=== PATIENT | male | born 1975 | race Caucasian/White ===

== ENCOUNTER 2017-08-15 14:05 | Observation (INO) | payer SELFPAY ==
[~2017-08-15] VITALS: Ht 175.3 cm; Wt 71.3 kg
[2017-08-15] MEDS ORDERED: IOHEXOL 350 MG/ML 10 ML VIAL (for RAD DIAG) IVCONTRAST ONE (14:06)
[2017-08-15 14:07] VITALS: BP 162/99; PULSE 99; RESP 18; TEMP 99.3; O2SAT 98
[2017-08-15] MEDS ORDERED: SODIUM CHLOR 0.9% 1000 ML INJ 1,000 ML IV SCH (14:47)
[2017-08-15] MEDS ORDERED: SODIUM CHLORIDE 0.9% FLUSH 10 ML FLUSH IVF PRN (15:00)
[2017-08-15] MEDS ORDERED: MORPHINE SULFATE 4 MG/ML INJ IV PUSH ONE (15:00)
[2017-08-15] MEDS ORDERED: ONDANSETRON HCL 4 MG/2 ML VIAL IV PUSH ONE (15:00)
[2017-08-15 15:10] LABS: AUTOMATED NEUTROPHIL # 7.2 TH/MM3 (1.8-7.7); BASOPHIL % 0.5 % (0.0-2.0); EOSINOPHIL # 0.1 TH/MM3 (0-0.4); EOSINOPHIL % 1.5 % (0.0-4.0); HEMATOCRIT 43.5 % (39.0-51.0); HEMO FLAGS DIFF FINAL; LYMPH % 17.7 % (9.0-44.0); LYMPHOCYTE # 1.7 TH/MM3 (1.0-4.8); MEAN CELL VOLUME 91.7 FL (80.0-100.0); MEAN CORPUSCULAR HGB CONC 33.8 % (32.0-36.0); MONO % 6.9 % (0.0-8.0); NEUT % 73.4 % (16.0-70.0); PLATELET COUNT 231 TH/MM3 (150-450); RED BLOOD COUNT 4.75 MIL/MM3 (4.50-5.90); RED CELL DISTRIBUTION WIDTH 13.8 % (11.6-17.2); WHITE BLOOD COUNT 9.8 TH/MM3 (4.0-11.0)
[2017-08-15 15:27] LABS: APTT (PATIENT) 28.5 SEC (24.3-30.1); PROTHROMBIN TIME - PATIENT 10.3 SEC (9.8-11.6)
[2017-08-15 15:31] LABS: POTASSIUM 4.2 MEQ/L (3.5-5.1)
[2017-08-15 15:53] LABS: CKMB 0.5 NG/ML (0.5-3.6)
--- NOTE | 2017-08-15 16:31 | PD ---
HPI Chief Complaint: Fall Time Seen by Provider: 14:47 Travel History International Travel<30 days: No Contact w/Intl Traveler<30days: No Traveled to known affect area: No History of Present Illness HPI 41-year-old male came to the emergency room brought by his neighbor for significant backache. Patient says that 2 days ago he was trying to put [place] lights when he fell from a second-story window. He landed on concrete floor. He did not come in and try to take care of it at home with over -the-counter pain medication and Epsom salt baths. Patient does not have healthcare insurance. However his backache is progressively worsening to the point where he is having trouble walking. He has started to use his fiance's cane. Patient denies any shortness of breath. Vital signs were otherwise stable. He claims to be otherwise healthy. No bowel or bladder issues. [facility] Past Medical History Narrative Medical List of his past medical, surgical, social and family history is reviewed from the nursing note. Medical History: Denies Significant Hx Tetanus Vaccination: > 5 Years Influenza Vaccination: No ?: Not Past Surgical History Tonsillectomy: Yes (ADDENOIDECTOMY) Social History Alcohol Use: Yes (OCCAS) Tobacco Use: Yes (1 PPD) Substance Use: No Allergies-Medications (Allergen,Severity, Reaction): Coded Allergies: No Known Allergies (Verified Allergy, Unknown, 08/15/17) Comments No known drug allergies. Reported Meds & Prescriptions Reported Meds & Active Scripts Active Narrative Medication List of his home medications reviewed from the nursing note. Review of Systems Except as stated in HPI: all other systems reviewed are Neg Musculoskeletal: Positive: Pain Physical Exam Narrative GENERAL: Awake, alert, moderate to significant distress SKIN: Focused skin assessment warm/dry. Diffuse erythematous maculopapular rash on his back that's blanching HEAD: Atraumatic. Normocephalic. EYES: Pupils equal and round. No scleral icterus. No injection or drainage. ENT: No nasal bleeding or discharge. Mucous membranes pink and moist. NECK: Trachea midline. No JVD. CARDIOVASCULAR: Regular rate and rhythm. No murmur appreciated. RESPIRATORY: No accessory muscle use. Clear to auscultation. Breath sounds equal bilaterally. GASTROINTESTINAL: Abdomen soft, non-tender, nondistended. Hepatic and splenic margins not palpable. MUSCULOSKELETAL: No obvious deformities. No clubbing. No cyanosis. No edema. Point tenderness at the entire thoracic and lumbar spine but no step-off. No cervical spine point tenderness. Significant paraspinal muscle spasm NEUROLOGICAL: Awake and alert. No obvious cranial nerve deficits. Motor grossly within normal limits. Normal speech. PSYCHIATRIC: Appropriate mood and affect; insight and judgment normal. Data Data Last Documented VS Orders Orders Basic Metabolic Panel (Bmp) (08/15/17 14:47) Complete Blood Count With Diff (08/15/17 14:47) Prothrombin Time / Inr (Pt) (08/15/17 14:47) Act Partial Throm Time (Ptt) (08/15/17 14:47) Type And Screen (08/15/17 14:47) Ct Abd/Pel W Iv Contrast(Rout) (08/15/17 14:47) Ct Thorax/ Chest W Iv Contrast (08/15/17 14:47) Iv Access Insert/Monitor (08/15/17 14:47) Ecg Monitoring (08/15/17 14:47) Oximetry (08/15/17 14:47) Oxygen Administration (08/15/17 14:47) Morphine Inj (Morphine Inj) (08/15/17 15:00) Sodium Chlor 0.9% 1000 Ml Inj (Ns 1000 M (08/15/17 14:47) Sodium Chloride 0.9% Flush (Ns Flush) (08/15/17 15:00) Ondansetron Inj (Zofran Inj) (08/15/17 15:00) Creatine Kinase (Cpk) (08/15/17 14:47) CKMB (08/15/17 14:55) CKMB% (08/15/17 14:55) Iohexol 350 Inj (Omnipaque 350 Inj) (08/15/17 14:06) Nicotine 21 Mg Patch.24 Hr (Habitrol 21 (08/15/17 17:45) Ketorolac Inj (Toradol Inj) (08/15/17 18:15) Orphenadrine Inj (Norflex Inj) (08/15/17 18:15) Ketorolac Inj (Toradol Inj) (08/15/17 18:15) Methocarbamol (Robaxin) (08/15/17 22:00) Acetamin-Hydrocod 325-5 Mg (Ironside 5-325 (08/15/17 18:15) Acetamin-Hydrocod 325-10 Mg (Ironside 10-32 (08/15/17 18:15) Morphine Inj (Morphine Inj) (08/15/17 18:15) Activity Oob With Assistance (08/15/17 18:06) Consult Pt Eval & Tx Oob (08/15/17 18:06) Admit Order (Ed Use Only) (08/15/17 18:23) Labs Laboratory Tests Test 08/15/17 14:55 White Blood Count 9.8 TH/MM3 Red Blood Count 4.75 MIL/MM3 Hemoglobin 14.7 GM/DL Hematocrit 43.5 % Mean Corpuscular Volume 91.7 FL Mean Corpuscular Hemoglobin 31.0 PG Mean Corpuscular Hemoglobin Concent 33.8 % Red Cell Distribution Width 13.8 % Platelet Count 231 TH/MM3 Mean Platelet Volume 8.2 FL Neutrophils (%) (Auto) 73.4 % Lymphocytes (%) (Auto) 17.7 % Monocytes (%) (Auto) 6.9 % Eosinophils (%) (Auto) 1.5 % Basophils (%) (Auto) 0.5 % Neutrophils # (Auto) 7.2 TH/MM3 Lymphocytes # (Auto) 1.7 TH/MM3 Monocytes # (Auto) 0.7 TH/MM3 Eosinophils # (Auto) 0.1 TH/MM3 Basophils # (Auto) 0.0 TH/MM3 CBC Comment DIFF FINAL Differential Comment Prothrombin Time 10.3 SEC Prothromb Time International Ratio 1.0 RATIO Activated Partial Thromboplast Time 28.5 SEC Blood Urea Nitrogen 15 MG/DL Creatinine 0.97 MG/DL Random Glucose 101 MG/DL Calcium Level 9.1 MG/DL Sodium Level 138 MEQ/L Potassium Level 4.2 MEQ/L Chloride Level 105 MEQ/L Carbon Dioxide Level 27.0 MEQ/L Anion Gap 6 MEQ/L Estimat Glomerular Filtration Rate 84 ML/MIN Total Creatine Kinase 310 U/L Creatine Kinase MB 0.5 NG/ML Creatine Kinase MB % 0.2 % MDM Medical Decision Making Medical Screen Exam Complete: Yes Emergency Medical Condition: Yes Medical Record Reviewed: Yes Differential Diagnosis Lumbar fracture, thoracic fracture, rib fracture Narrative Course 4:30 PM blood test results of back and within acceptable limits. Awaiting for the CT scan of his thorax, abdomen and pelvis. Patient was medicated for pain. [address] scan shows L2 superior endplate fracture. I discussed the case with Dr. Carrillo recommends Toradol and muscle relaxant and he will consult on the patient. Awaiting for the hospitalist to call back. Procedures Procedure Narrative Emergency department E-FAST was performed with patient consent. The curvilinear probe was used in the right upper quadrant/Morison's pouch, suprapubic, left upper quadrant/spleenorenal space, epigastric, parasternal long axis and anterior bilateral chest wall. There was no evidence of peritoneal free fluid, pericardial effusion, or pneumothorax. EKG Prior to Arrival: No Physician Communication Physician Communication Dr. Carrillo Diagnosis Primary Impression: L2 vertebral fracture Qualified Codes: S32.028A - Other fracture of second lumbar vertebra, initial encounter for closed fracture Additional Impression: Fall Qualified Codes: W19.XXXA - Unspecified fall, initial encounter Admitting Information Admitting Physician Requests: Admit Scripts Ibuprofen (Ibuprofen) 400 Mg Tab 400 MG PO Q8H for Inflammation for 10 Days, #30 TAB 0 Refills Prov: Gonzalez Madrid MD 08/17/17 Hydrocodone/Acetaminophen (Hydrocodone-Acetamin 5-325 mg) 5 Mg-325 Mg Tablet 1-2 TAB PO Q4H Y for PAIN SCALE 4 TO 10 for 10 Days, #60 TAB 0 Refills Prov: Gonzalez Madrid MD 08/17/17 Methocarbamol (Methocarbamol) 500 Mg Tab 500 MG PO Q8HR Y for SPASM for 7 Days, #20 TAB Prov: Gonzalez Madrid MD 08/17/17 Misc. Devices (Roller Walker) 1 Mis Mis EA .ROUTE NOW, #1 Prov: Leeann Pelayo MD 08/16/17 Canelo Chaudhary MD Aug 15, 2017 16:31
--- NOTE | 2017-08-15 16:58 | RADRPT ---
EXAM DATE/TIME: 08/15/2017 16:19 This report includes an Addendum and supersedes previous reports for this exam. [facility] COMPARISON: No previous studies available for comparison. INDICATIONS : Fall from second floor window. IV CONTRAST: 71 cc Omnipaque 350 (iohexol) IV ; Cumulative dose for multiple exams. ORAL CONTRAST: No oral contrast ingested. RADIATION DOSE: 13.65 CTDIvol (mGy) ; Combined studies - Thorax/Abdomen/Pelvis MEDICAL HISTORY : None SURGICAL HISTORY : None. ENCOUNTER: Initial ACUITY: 1 day PAIN SCALE: 6/10 LOCATION: Bilateral lower back. TECHNIQUE: Volumetric scanning of the abdomen and pelvis was performed. Using automated exposure control and ad justment of the mA and/or kV according to patient size, radiation dose was kept as low as reasonably achievable to obtain optimal diagnostic quality images. DICOM format image data is available electro nically for review and comparison. FINDINGS: LOWER LUNGS: Dependent atelectatic changes in both hemithoraces. LIVER: 1.9 cm enhancing lesion along the superior border of the left hepatic lobe with a partially enhancing 9 mm nodule posteriorly in the right hepatic lobe are characteristic of hemangiomas. There is no di lation of the biliary tree. No calcified gallstones. SPLEEN: Normal size without lesion. PANCREAS: Within normal limits. KIDNEYS: Normal in size and shape. There is no mass, stone or hydronephrosis. ADRENAL GLANDS: Within normal limits. VASCULAR: There is no aortic aneurysm. BOWEL/MESENTERY: The stomach, small bowel, and colon demonstrate no acute abnormality. There is no free intraperitone al air or fluid. ABDOMINAL WALL: Subcutaneous stranding laterally over the right buttocks characteristic of soft tissue contusion. RETROPERITONEUM: There is no lymphadenopathy. BLADDER: No wall thickening or mass. REPRODUCTIVE: Within normal limits. INGUINAL: There is no lymphadenopathy or hernia. MUSCULOSKELETAL: Mild levoscoliosis of the thoracolumbar spine. CONCLUSION: 1. Contusion over the lateral aspect of the right buttocks. No associated fracture. 2. Probable hemangiomas along the superior margin of the left hepatic lobe and posteriorly in the rig ht hepatic lobe. 3. No acute fracture or visceral trauma. 4. Mild levoscoliosis of the thoracolumbar spine. Bibasilar dependent atelectatic changes. Luigi Pavon MD on August 15, 2017 at 16:50 Board Certified Radiologist. This report was verified electronically. ADDENDUM: I was asked to review the above by Dr. Chaudhary. There is a fracture through the superior endplate of L2, best seen on the coronal reconstructions and sagittal computer hardware developer of the same series. No retropulsed fr agment. Osseous structures are otherwise intact. Luigi Pavon MD on August 15, 2017 at 17:29 Board Certified Radiologist. This report was verified electronically.
--- NOTE | 2017-08-15 17:05 | RADRPT ---
EXAM DATE/TIME: 08/15/2017 16:19 [facility] COMPARISON: No previous studies available for comparison. INDICATIONS : Fall from second floor window. IV CONTRAST: 71 cc Omnipaque 350 (iohexol) IV ; Cumulative dose for multiple exams. RADIATION DOSE: 13.65 CTDIvol (mGy) ; Combined studies - Thorax/Abdomen/Pelvis MEDICAL HISTORY : None SURGICAL HISTORY : None. ENCOUNTER: Initial ACUITY: 1 day PAIN SCALE: 6/10 LOCATION: mid-back TECHNIQUE: Volumetric scanning of the chest was performed. Using automated exposure control and adjustment of t he mA and/or kV according to patient size, radiation dose was kept as low as reasonably achievable to obtain optimal diagnostic quality images. DICOM format image data is available electronically for review and comparison. Follow-up recommendations for detected pulmonary nodules are based at a minimum on nodule size and pa tient risk factors according to Fleischner Society Guidelines. FINDINGS: LUNGS: 2 nodular densities are identified. There is a noncalcified nodule in the right middle lobe measuring 8 mm. A pleural-based nodule is identified in the posterior left costophrenic sulcus measuring 9 mm. There is no mass or pneumothorax. Marked compressive atelectasis is seen posteriorly in the lung s. There is also consolidating airspace disease. PLEURA: There is no pleural thickening or pleural effusion. MEDIASTINUM: The heart and great vessels demonstrate no acute abnormality. There is no mediastinal or hilar lymph adenopathy. AXILLAE: Within normal limits. No lymphadenopathy. SKELETAL: Advanced arthropathy is noted at the left shoulder joint. The bony structures are otherwise intact. T here is no acute fracture. MISCELLANEOUS: The visualized upper abdominal organs demonstrate no acute abnormality. CONCLUSION: 1. Small noncalcified nodules. Short-term followup may be indicated. 2. No evidence of consolidating airspace disease, pneumothorax or acute fracture. 3. Advanced arthropathy of the left shoulder. Jair Pérez MD on August 15, 2017 at 16:57 Board Certified Radiologist. This report was verified electronically.
[2017-08-15 17:24] VITALS: BP 125/82; PULSE 84; RESP 18; O2SAT 99
[2017-08-15] MEDS ORDERED: NICOTINE 21 MG/24 HR PATCH T-DERMAL ONE (17:45)
[2017-08-15] MEDS ORDERED: MORPHINE SULFATE 4 MG/ML INJ IV PUSH PRN (18:15)
[2017-08-15] MEDS ORDERED: ORPHENADRINE INJ 60 MG/2 ML AMP IM ONE (18:15)
[2017-08-15] MEDS ORDERED: KETOROLAC TROMETHAMINE 30 MG/ML (IVP) VIAL IV PUSH ONE (18:15)
[2017-08-15] MEDS ORDERED: ACETAMINOPHEN/HYDROcodone 325 MG/5 MG TAB PO PRN (18:15)
[2017-08-15] MEDS: KETOROLAC TROMETHAMINE 30 MG/ML (IVP) VIAL IV PUSH SCH ×2 (18:15→23:34)
--- NOTE | 2017-08-15 18:15 | PD.CONS ---
[facility] Service Neurosurgery Consult Requested By Emergency room- Reason for Consult The patient is a 41-year-old male who came to the emergency room by private vehicle today with complaint of severe back pain. He reportedly fell one story on to concrete while putting up [place] lights 2 days ago. No loss of consciousness. The back pain has become severe to the point where he has difficulty ambulating even with a cane. No fevers chills, nausea or vomiting. No bowel or bladder dysfunction. No weakness numbness paresthesias in the extremities. No neck pain. Primary Care Physician No Primary Care Physician Review of Systems Constitutional: DENIES: Fever, Dizziness Ears, nose, mouth, throat: DENIES: Hearing loss, Vertigo Respiratory: DENIES: Cough, Shortness of breath Cardiovascular: DENIES: Chest pain, Palpitations, Syncope Gastrointestinal: DENIES: Abdominal pain, Constipation, Diarrhea, Nausea, Vomiting Genitourinary: DENIES: Urinary incontinence Musculoskeletal: COMPLAINS OF: Muscle aches, Stiffness, Back pain, DENIES: Joint pain, Neck pain Hematologic/lymphatic: COMPLAINS OF: Bruising Neurologic: COMPLAINS OF: Abnormal gait, DENIES: Headache Psychiatric: DENIES: Confusion Past Family Social History Allergies: Coded Allergies: No Known Allergies (Verified Allergy, Unknown, 08/15/17) Past Medical History No history of significant cardiac, pulmonary, gastrointestinal disease, diabetes , hypertension Past Surgical History Adenoidectomy Reported Medications Reported Meds & Active Scripts Active No Active Prescriptions or Reported Medications Social History Smokes 1 pack cigarettes per day Occasional alcohol use Physical Exam Vital Signs Vital Signs Date Time Temp Pulse Resp B/P (MAP) Pulse Ox O2 Delivery O2 Flow Rate FiO2 08/15/17 17:24 84 18 125/82 (96) 99 Room Air 08/15/17 14:31 96 18 98 Room Air 08/15/17 14:07 99.3 99 18 162/99 (120) 98 Room Air Physical Exam GENERAL: This is a well-nourished, well-developed patient, no apparent distress. SKIN: No abrasions, contusion, rash noted. Skin warm and dry. HEAD: Atraumatic. Normocephalic. No temporal or scalp tenderness. EYES: Sclerae are clear and nonicteric ENT: No facial edema or ecchymosis. No periorbital edema. No CSF otorrhea or rhinorrhea. No palpable facial fracture or deformity. NECK: Trachea midline. No cervical spine tenderness. CARDIOVASCULAR: Regular rate and rhythm without murmurs, gallops, or rubs. RESPIRATORY: Clear to auscultation. Breath sounds equal bilaterally. No wheezes , rales, or rhonchi. GASTROINTESTINAL: Abdomen soft, non-tender, nondistended. No hepato-splenomegaly , or palpable masses. No guarding. MUSCULOSKELETAL: Extremities without cyanosis, or edema. No joint tenderness, or edema noted. No calf tenderness. Dorsalis pedis pulses 2+ bilateral NEUROLOGICAL: Awake and alert Oriented X 3 Speech is clear Conversant and appropriate Follow simple commands well Answers questions appropriately Reasonable judgment and insight Recent and remote memory are intact No evidence of anxiety or depression Pupils are equal and reactive to accommodation. Extra-ocular movements, visual sanchez to confrontation, facial sensorimotor, tongue, palate, sternocleidomastoid testing, hearing to finger rub testing, and bilateral shoulder shrug are all intact. Sensation is intact to light touch in all extremities Strength normal major flexion and extension groups all extremities Amarilis's absent bilaterally No ankle clonus Plantar responses absent bilateral Fine motor movements intact upper extremities Laboratory Laboratory Tests Test 08/15/17 14:55 White Blood Count 9.8 Red Blood Count 4.75 Hemoglobin 14.7 Hematocrit 43.5 Mean Corpuscular Volume 91.7 Mean Corpuscular Hemoglobin 31.0 Mean Corpuscular Hemoglobin Concent 33.8 Red Cell Distribution Width 13.8 Platelet Count 231 Mean Platelet Volume 8.2 Neutrophils (%) (Auto) 73.4 Lymphocytes (%) (Auto) 17.7 Monocytes (%) (Auto) 6.9 Eosinophils (%) (Auto) 1.5 Basophils (%) (Auto) 0.5 Neutrophils # (Auto) 7.2 Lymphocytes # (Auto) 1.7 Monocytes # (Auto) 0.7 Eosinophils # (Auto) 0.1 Basophils # (Auto) 0.0 CBC Comment DIFF FINAL Differential Comment Prothrombin Time 10.3 Prothromb Time International Ratio 1.0 Activated Partial Thromboplast Time 28.5 Blood Urea Nitrogen 15 Creatinine 0.97 Random Glucose 101 Calcium Level 9.1 Sodium Level 138 Potassium Level 4.2 Chloride Level 105 Carbon Dioxide Level 27.0 Anion Gap 6 Estimat Glomerular Filtration Rate 84 Total Creatine Kinase 310 Creatine Kinase MB 0.5 Creatine Kinase MB % 0.2 Result Diagram: 08/15/17 1455 08/15/17 1455 Imaging 08/15/17 CT scan abdomen and pelvis and CT scan chest bone windows of the thoracic lumbar and sacral spine images have been reviewed by the undersigned. There is a small superior L2 endplate fracture without retropulsion, subluxation , or kyphosis. No posterior element involvement. Chest CT 08/15/17 1447 Signed Impressions: Service Date/Time: August 16:19 - CONCLUSION: 1. Small noncalcified nodules. Short-term followup may be indicated. 2. No evidence of consolidating airspace disease, pneumothorax or acute fracture. 3. Advanced arthropathy of the left shoulder. Jair Pérez MD Abdomen/Pelvis CT 08/15/17 1447 Signed Impressions: Service Date/Time: August 16:19 - CONCLUSION: 1. Contusion over the lateral aspect of the right buttocks. No associated fracture. 2. Probable hemangiomas along the superior margin of the left hepatic lobe and posteriorly in the right hepatic lobe. 3. No acute fracture or visceral trauma. 4. Mild levoscoliosis of the thoracolumbar spine. Bibasilar dependent atelectatic changes. Luigi Pavon MD ADDENDUM: I was asked to review the above by Dr. Chaudhary. There is a fracture through the superior endplate of L2, best seen on the coronal reconstructions and sagittal drafting detailer of the same series. No retropulsed fragment. Osseous structures are otherwise intact. Luigi Pavon MD Assessment and Plan Assessment and Plan Impression: 1. Mild superior L2 compression fracture without subluxation, retropulsion, or posterior element involvement. 2. Thoracolumbar myofascial strain Recommendations: Patient is being admitted for pain control, physical therapy. Have initiated IV Toradol, Robaxin, and narcotic pain medication. Physical therapy consult He does not require brace at this point. Plan follow-up x-ray and possible MRI imaging depending on his clinical course. Vlad Carrillo MD Aug 15, 2017 18:15
[2017-08-15] MEDS ORDERED: SODIUM CHLORIDE 0.9% FLUSH 10 ML FLUSH IV FLUSH PRN (18:30)
[2017-08-15] MEDS ORDERED: NALOXONE HCL 0.4 MG/ML AMP IV PUSH PRN (18:30)
--- NOTE | 2017-08-15 18:57 | HHI.HP ---
HPI Service [facility] Primary Care Physician No Primary Care Physician Admission Diagnosis L2 superior endplate fracture, fall Diagnoses: Travel History International Travel<30 Days: No Contact w/Intl Traveler <30 Da: No Traveled to Known Affected Are: No History of Present Illness fell 2 days ago, tues even while trying to hang [employer] lights from 2nd story onto concrete pavement reports he hit his head landed on his back or butt- with big bruise there not on blood thinners girlfriend heard him scream and came and got him up, and walked with him, and took him to take a bath with epsom salt pt does not remember anything regarding girlfriend getting him up she called the squad yesterday because his pain in lower lumbar spine, denies headaches, denies discharge from ears was able to walk at home with the girlfriend's walker no other symptoms Review of Systems Except as stated in HPI: all other systems reviewed are Neg Past Family Social History Past Medical History none but was told once RLS and was prescribed requip- that was about 20yrs ago Past Surgical History left should dislocation sx adneoidctomy Reported Medications tylenol pm every night for sleep kratom powder for left shoulder pain from arthritis Allergies: Coded Allergies: No Known Allergies (Verified Allergy, Unknown, 08/15/17) Family History mother- MS mother side, heart issues and cancers Social History smokes a pack a day drink about one or two shots of fireball, one beer, one wine- at least drink about 4 times a week [facility] , no iv drugs Physical Exam Vital Signs Vital Signs Date Time Temp Pulse Resp B/P (MAP) Pulse Ox O2 Delivery O2 Flow Rate FiO2 08/15/17 17:24 84 18 125/82 (96) 99 Room Air 08/15/17 14:31 96 18 98 Room Air 08/15/17 14:07 99.3 99 18 162/99 (120) 98 Room Air Physical Exam GENERAL: This is a well-nourished, well-developed patient, in no apparent distress. SKIN: No rashes, ecchymoses or lesions. Cool and dry. HEAD: Atraumatic. Normocephalic. No temporal or scalp tenderness. EYES: No scleral icterus. No injection or drainage. ENT: Nose without bleeding, purulent drainage or septal hematoma. . Airway patent. NECK: Trachea midline. No JVD. Supple, nontender, no meningeal signs. CARDIOVASCULAR: Regular rate and rhythm without murmurs, gallops, or rubs. RESPIRATORY: Clear to auscultation. Breath sounds equal bilaterally. No wheezes , rales, or rhonchi. GASTROINTESTINAL: Abdomen soft, non-tender, nondistended. No hepato-splenomegaly , or palpable masses. No guarding. MUSCULOSKELETAL: Extremities without clubbing, cyanosis, or edema. No calf tenderness. NEUROLOGICAL: Awake and alert. Motor and sensory grossly within normal limits. Normal speech. Pain at lumbosacral area. Even with minimal improvement. Laboratory Laboratory Tests Test 08/15/17 14:55 White Blood Count 9.8 Red Blood Count 4.75 Hemoglobin 14.7 Hematocrit 43.5 Mean Corpuscular Volume 91.7 Mean Corpuscular Hemoglobin 31.0 Mean Corpuscular Hemoglobin Concent 33.8 Red Cell Distribution Width 13.8 Platelet Count 231 Mean Platelet Volume 8.2 Neutrophils (%) (Auto) 73.4 Lymphocytes (%) (Auto) 17.7 Monocytes (%) (Auto) 6.9 Eosinophils (%) (Auto) 1.5 Basophils (%) (Auto) 0.5 Neutrophils # (Auto) 7.2 Lymphocytes # (Auto) 1.7 Monocytes # (Auto) 0.7 Eosinophils # (Auto) 0.1 Basophils # (Auto) 0.0 CBC Comment DIFF FINAL Differential Comment Prothrombin Time 10.3 Prothromb Time International Ratio 1.0 Activated Partial Thromboplast Time 28.5 Blood Urea Nitrogen 15 Creatinine 0.97 Random Glucose 101 Calcium Level 9.1 Sodium Level 138 Potassium Level 4.2 Chloride Level 105 Carbon Dioxide Level 27.0 Anion Gap 6 Estimat Glomerular Filtration Rate 84 Total Creatine Kinase 310 Creatine Kinase MB 0.5 Creatine Kinase MB % 0.2 Result Diagram: 08/15/17 1455 08/15/17 1455 Imaging Last [address] 08/15/17 1447 Signed Impressions: Service Date/Time: August 16:19 - CONCLUSION: 1. Small noncalcified nodules. Short-term followup may be indicated. 2. No evidence of consolidating airspace disease, pneumothorax or acute fracture. 3. Advanced arthropathy of the left shoulder. Jair Pérez MD Abdomen/Pelvis CT 08/15/17 1447 Signed Impressions: Service Date/Time: August 16:19 - CONCLUSION: 1. Contusion over the lateral aspect of the right buttocks. No associated fracture. 2. Probable hemangiomas along the superior margin of the left hepatic lobe and posteriorly in the right hepatic lobe. 3. No acute fracture or visceral trauma. 4. Mild levoscoliosis of the thoracolumbar spine. Bibasilar dependent atelectatic changes. Luigi Pavon MD ADDENDUM: I was asked to review the above by Dr. Chaudhary. There is a fracture through the superior endplate of L2, best seen on the coronal reconstructions and sagittal psychological anthropologist of the same series. No retropulsed fragment. Osseous structures are otherwise intact. Luigi Pavon MD Head CT 08/15/17 0000 Signed Impressions: Service Date/Time: August 19:04 - CONCLUSION: 1. No acute intracranial abnormalities. There is a focal calcification in the right frontoparietal region which appears benign. Vishal Leroy MD Caprini VTE Risk Assessment Caprini VTE Risk Assessment: Mod/High Risk (score >= 2) Caprini Risk Assessment Model Point Value = 1 Point Value = 2 Point Value = 3 Point Value = 5 Age 41-60 Minor surgery BMI > 25 kg/m2 Swollen legs Varicose veins or History of unexplained or recurrent spontaneous Oral contraceptives or hormone replacement Sepsis (< 1 month) Serious lung disease, including pneumonia (< 1 month) Abnormal pulmonary function Acute myocardial infarction Congestive heart failure (< 1 month) History of inflammatory bowel disease Medical patient at bed rest Age 61-74 Arthroscopic surgery Major open surgery (> 45 min) Laparoscopic surgery (> 45 min) Malignancy Confined to bed (> 72 hours) Immobilizing plaster cast Central venous access Age >= 75 History of VTE Family history of VTE Factor V Leiden Prothrombin [id number] Lupus anticoagulant Anticardiolipin antibodies Elevated serum homocysteine Heparin-induced thrombocytopenia Other congenital or acquired thrombophilia Stroke (< 1 month) Elective arthroplasty Hip, pelvis, or leg fracture Acute spinal cord injury (< 1 month) Prophylaxis Regimen Total Risk Factor Score Risk Level Prophylaxis Regimen 0-1 Low Early ambulation 2 Moderate Order ONE of the following: *Sequential Compression Device (SCD) *Heparin 5000 units SQ BID 3-4 Higher Order ONE of the following medications: *Heparin 5000 units SQ TID *Enoxaparin/Lovenox 40 mg SQ daily (WT < 150 kg, CrCl > 30 mL/min) *Enoxaparin/Lovenox 30 mg SQ daily (WT < 150 kg, CrCl > 10-29 mL/min) *Enoxaparin/Lovenox 30 mg SQ BID (WT < 150 kg, CrCl > 30 mL/min) AND/OR *Sequential Compression Device (SCD) 5 or more Highest Order ONE of the following medications: *Heparin 5000 units SQ TID (Preferred with Epidurals) *Enoxaparin/Lovenox 40 mg SQ daily (WT < 150 kg, CrCl > 30 mL/min) *Enoxaparin/Lovenox 30 mg SQ daily (WT < 150 kg, CrCl > 10-29 mL/min) *Enoxaparin/Lovenox 30 mg SQ BID (WT < 150 kg, CrCl > 30 mL/min) AND *Sequential Compression Device (SCD) Assessment and Plan Assessment and Plan Impression: Status post fall 2 days ago. Not able to recall the events. L2 fracture Arthritis of left shoulder Restless leg syndrome Plan: Exam patient was evaluated by neurosurgeon. For now, pain management, continue monitoring. If no improvement, further imaging studies will be planned per neurologist surgeon. DVT prophylaxis with SCD. Discussed Condition With patient, ER Jada Alejandro MD Aug 15, 2017 18:57
[2017-08-15 19:11] VITALS: RESP 18; O2SAT 99
--- NOTE | 2017-08-15 19:26 | RADRPT ---
EXAM DATE/TIME: 08/15/2017 19:04 [facility] COMPARISON: No previous studies available for comparison. INDICATIONS : Head pain due to fall from second story window. RADIATION DOSE: 30.39 CTDIvol (mGy) MEDICAL HISTORY : None SURGICAL HISTORY : Tonsillectomy. ENCOUNTER: Initial ACUITY: 1 day PAIN SCALE: 5/10 LOCATION: Bilateral cranial TECHNIQUE: Multiple contiguous axial images were obtained of the head. Using automated exposure control and adj ustment of the mA and/or kV according to patient size, radiation dose was kept as low as reasonably a chievable to obtain optimal diagnostic quality images. DICOM format image data is available electro nically for review and comparison. FINDINGS: CEREBRUM: The ventricles are normal for age. No evidence of midline shift, mass lesion, hemorrhage or acute in farction. No extra-axial fluid collections are seen. POSTERIOR FOSSA: The cerebellum and brainstem are intact. The 4th ventricle is midline. The cerebellopontine angle i s unremarkable. EXTRACRANIAL: The visualized portion of the orbits is intact. SKULL: The calvaria is intact. No evidence of skull fracture. CONCLUSION: 1. No acute intracranial abnormalities. There is a focal calcification in the right frontoparietal re gion which appears benign. Vishal Leroy MD on August 15, 2017 at 19:20 Board Certified Radiologist. This report was verified electronically.
[2017-08-15 20:00] VITALS: BP 144/99; PULSE 72; RESP 18; TEMP 95.9; O2SAT 96
[2017-08-15] MEDS ORDERED: THIAMINE HCL 100 MG TAB PO ONE (20:45)
[2017-08-15] MEDS ORDERED: LORazepam 2 MG TAB PO PRN (20:45)
[2017-08-15] MEDS ORDERED: LORazepam 1 MG TAB PO PRN (20:45)
[2017-08-15] MEDS ORDERED: FLUMAZENIL 0.5 MG/5 ML VIAL IV PUSH PRN (20:45)
[2017-08-15] MEDS: METHOCARBAMOL 500 MG TAB PO SCH (21:25)
[2017-08-15] MEDS: ACETAMINOPHEN/HYDROcodone 325 MG/10 MG TAB PO PRN (21:25)
[2017-08-15] MEDS: SODIUM CHLORIDE 0.9% FLUSH 10 ML FLUSH IV FLUSH SCH (21:26)
[2017-08-15 21:30] VITALS: PULSE 81
[2017-08-16] VITALS (9 sets, daily range): BP systolic 129–143; BP diastolic 83–96; PULSE 64–78; RESP 18; TEMP 96.6–97.8; O2SAT 96–98
[2017-08-16] MEDS: ACETAMINOPHEN/HYDROcodone 325 MG/10 MG TAB PO PRN ×6 (01:49→22:39)
[2017-08-16] MEDS: KETOROLAC TROMETHAMINE 30 MG/ML (IVP) VIAL IV PUSH SCH ×3 (05:34→18:24)
[2017-08-16] MEDS: METHOCARBAMOL 500 MG TAB PO SCH ×3 (05:34→21:50)
[2017-08-16 07:18] LABS: AUTOMATED NEUTROPHIL # 4.1 TH/MM3 (1.8-7.7); BASOPHIL % 0.7 % (0.0-2.0); EOSINOPHIL # 0.3 TH/MM3 (0-0.4); EOSINOPHIL % 4.1 % (0.0-4.0); HEMATOCRIT 38.2 % (39.0-51.0); HEMO FLAGS DIFF FINAL; LYMPH % 24.4 % (9.0-44.0); LYMPHOCYTE # 1.6 TH/MM3 (1.0-4.8); MEAN CELL VOLUME 92.3 FL (80.0-100.0); MEAN CORPUSCULAR HEMOGLOBIN 30.9 PG (27.0-34.0); MEAN CORPUSCULAR HGB CONC 33.5 % (32.0-36.0); NEUT % 61.8 % (16.0-70.0); PLATELET COUNT 196 TH/MM3 (150-450); RED BLOOD COUNT 4.14 MIL/MM3 (4.50-5.90); RED CELL DISTRIBUTION WIDTH 13.9 % (11.6-17.2); WHITE BLOOD COUNT 6.6 TH/MM3 (4.0-11.0)
[2017-08-16 07:43] LABS: POTASSIUM 4.3 MEQ/L (3.5-5.1)
[2017-08-16] MEDS: SODIUM CHLORIDE 0.9% FLUSH 10 ML FLUSH IV FLUSH SCH ×2 (09:00→21:00)
[2017-08-16] MEDS: THIAMINE HCL 100 MG TAB PO SCH (09:36)
[2017-08-16] MEDS ORDERED: NICOTINE 21 MG/24 HR PATCH T-DERMAL ONE (14:00)
[2017-08-16] MEDS ORDERED: REMOVE OLD NICODERM (NICOTINE) PATCH T-DERMAL ONE (14:00)
[2017-08-16] MEDS ORDERED: ROLLER WALKER1 MI1 (15:13)
--- NOTE | 2017-08-16 15:24 | HHI.PR ---
Subjective Remarks Pt states he feels very sore. He doesn't get pain when he stays still but w movement he does have pain. no nausea or vomiting, no lightheadedness or dizziness. Objective Vitals Vital Signs Date Time Temp Pulse Resp B/P (MAP) Pulse Ox O2 Delivery O2 Flow Rate FiO2 08/16/17 12:00 96.7 72 18 140/92 (108) 98 08/16/17 08:00 97.2 69 18 135/88 (104) 96 08/16/17 04:29 64 08/16/17 04:00 96.6 73 18 139/92 (108) 96 08/16/17 00:05 78 08/16/17 00:00 97.8 78 18 129/83 (98) 97 08/15/17 21:30 81 08/15/17 20:00 95.9 72 18 144/99 (114) 96 08/15/17 19:52 08/15/17 19:11 99 Room Air 08/15/17 19:11 18 99 Room Air 08/15/17 17:24 84 18 125/82 (96) 99 Room Air I/O 08/15/17 08/15/17 08/15/17 08/16/17 08/16/17 08/16/17 07:00 15:00 23:00 07:00 15:00 23:00 Intake Total 1480 ml 480 ml Balance 1480 ml 480 ml Intake Oral 480 ml 480 ml IV Total 1000 ml # Voids 1 1 # Bowel Movements 0 0 1 Result Diagram: 08/16/17 0659 08/16/17 0659 Imaging Last Impressions Chest CT 08/15/177 Signed Impressions: Service Date/Time: August 16:19 - CONCLUSION: 1. Small noncalcified nodules. Short-term followup may be indicated. 2. No evidence of consolidating airspace disease, pneumothorax or acute fracture. 3. Advanced arthropathy of the left shoulder. Jair Pérez MD Abdomen/Pelvis CT 08/15/177 Signed Impressions: Service Date/Time: August 16:19 - CONCLUSION: 1. Contusion over the lateral aspect of the right buttocks. No associated fracture. 2. Probable hemangiomas along the superior margin of the left hepatic lobe and posteriorly in the right hepatic lobe. 3. No acute fracture or visceral trauma. 4. Mild levoscoliosis of the thoracolumbar spine. Bibasilar dependent atelectatic changes. Luigi Pavon MD ADDENDUM: I was asked to review the above by Dr. Chaudhary. There is a fracture through the superior endplate of L2, best seen on the coronal reconstructions and sagittal stitch burnisher of the same series. No retropulsed fragment. Osseous structures are otherwise intact. Luigi Pavon MD Head CT 08/15/17 0000 Signed Impressions: Service Date/Time: August 19:04 - CONCLUSION: 1. No acute intracranial abnormalities. There is a focal calcification in the right frontoparietal region which appears benign. Vishal Leroy MD Objective Remarks GENERAL: laying in bed HEAD: Atraumatic. Normocephalic. EYES: EOMI ENT: Nose without drainage. Airway patent. NECK: Trachea midline. CARDIOVASCULAR: Regular rate and rhythm without murmurs RESPIRATORY: Clear to auscultation. Breath sounds equal bilaterally. No wheezes GASTROINTESTINAL: Abdomen soft, non-tender, nondistended. No guarding. MUSCULOSKELETAL: Extremities without edema. No calf tenderness. NEUROLOGICAL: Awake and alert. Motor and sensory grossly within normal limits. Normal speech. A/P Assessment and Plan Status post fall/ L2 fx. Not able to recall the events. Dr Roach evaluated the patient, continue pain control w toradol IV scheduled until 08/17/17, robaxin, norco prn and morphine prn breakthrough. Pt was also evaluate by PT who recommended wheeled walker and no home PT. Pt continues to be sore but pain better whenever he doesn't move. Per neurosx he doesn't need a brace. Awaiting final recs from neurosx. Arthritis of left shoulder-stable Restless leg syndrome -stable DVT proph: SCD/encourage ambulation Discharge Planning anticipate d/c in Leeann Foster MD Aug 16, 2017 15:24
[2017-08-16] MEDS ORDERED: TEMAZEPAM 15 MG CAP PO ONE (20:45)
[2017-08-16] MEDS: REMOVE OLD PATCH T-DERMAL SCH (21:00)
[2017-08-17] VITALS: BP 143/90; PULSE 76; RESP 18; TEMP 96.5; O2SAT 97
[2017-08-17] MEDS: KETOROLAC TROMETHAMINE 30 MG/ML (IVP) VIAL IV PUSH SCH ×3 (00:06→14:23)
[2017-08-17] MEDS: METHOCARBAMOL 500 MG TAB PO SCH ×2 (05:59→14:22)
[2017-08-17 07:50] VITALS: BP 140/84; PULSE 72; RESP 18; TEMP 97.2; O2SAT 98
[2017-08-17] MEDS ORDERED: NICOTINE 21 MG/24 HR PATCH T-DERMAL SCH (09:00)
[2017-08-17] MEDS: THIAMINE HCL 100 MG TAB PO SCH (10:12)
[2017-08-17] MEDS: REMOVE OLD PATCH T-DERMAL SCH (10:12)
[2017-08-17] MEDS: ACETAMINOPHEN/HYDROcodone 325 MG/10 MG TAB PO PRN ×2 (10:14→14:22)
[2017-08-17] MEDS: SODIUM CHLORIDE 0.9% FLUSH 10 ML FLUSH IV FLUSH SCH (10:15)
[2017-08-17 11:39] VITALS: BP 138/77; PULSE 84; RESP 18; TEMP 97.2; O2SAT 98
[2017-08-17 16:00] VITALS: BP 133/93; PULSE 91; RESP 18; TEMP 97.6; O2SAT 98
--- NOTE | 2017-08-17 16:32 | RADRPT ---
EXAM DATE/TIME: 08/17/2017 15:06 [facility] COMPARISON: No previous studies available for comparison. INDICATIONS : Fracture. MEDICAL HISTORY : None. SURGICAL HISTORY : Left shoulder ENCOUNTER: Initial ACUITY: 1 day PAIN SCORE: 5/10 LOCATION: Paraspinal TECHNIQUE: Multiplanar multisequence MRI of the lumbar spine was performed without contrast. FINDINGS: There is a mild compression fracture at the superior endplate of L2 with marrow edema. There is also a hairline relatively nondisplaced fracture through the anterior aspect of L1 with aurelia ow edema superiorly. There is no retropulsion or subluxation. No other lumbar spine fractures identif ied. No discrete disc protrusions. Conus medullaris intact. CONCLUSION: 1. Mild superior endplate compression fracture of L2 without retropulsion. 2. Hairline nondisplaced fracture superior endplate L1 with marrow edema. No retropulsion. 3. No canal stenosis. No discrete disc extrusions. Conus is intact. Vishal Leroy MD on August 17, 2017 at 16:27 Board Certified Radiologist. This report was verified electronically.
[2017-08-17 16:50] VITALS: PULSE 77
[2017-08-17] MEDS ORDERED: METH500T3 PO (17:43)
[2017-08-17] MEDS ORDERED: HYDR-3516 PO (17:43)
[2017-08-17] MEDS ORDERED: IBUP1TAB5 PO (17:47)
--- NOTE | 2017-08-17 17:48 | HHI.DCPOC ---
Discharge Care Plan Diagnosis: (1) L2 vertebral fracture Additional Problems L2 Compression Fracture Goals to Promote Your Health * To prevent worsening of your condition and complications * To maintain your health at the optimal level Directions to Meet Your Goals Take your medications as prescribed Follow your dietary instruction Follow activity as directed Keep your appointments as scheduled Take your immunizations and boosters as scheduled If your symptoms worsen call your PCP, if no PCP go to Urgent Care Center or Emergency Room Smoking is Dangerous to Your Health. Avoid second hand smoke Call the 24-hour hour crisis hotline for domestic abuse at Gonzalez Madrid MD Aug 17, 2017 17:47
--- NOTE | 2017-08-17 17:51 | HHI.DCPOC ---
Discharge Care Plan Diagnosis: (1) L2 vertebral fracture Additional Problems L2 compression fracture with back pain Goals to Promote Your Health * To prevent worsening of your condition and complications * To maintain your health at the optimal level Directions to Meet Your Goals Take your medications as prescribed Follow your dietary instruction Follow activity as directed Keep your appointments as scheduled Take your immunizations and boosters as scheduled If your symptoms worsen call your PCP, if no PCP go to Urgent Care Center or Emergency Room Smoking is Dangerous to Your Health. Avoid second hand smoke Call the 24-hour hour crisis hotline for domestic abuse at Gonzalez Madrid MD Aug 17, 2017 17:51
--- NOTE | 2017-08-17 18:29 | HHI.DS ---
Discharge Summary Admission Date Aug 15, 2017 at 6:24 pm Discharge Date: Aug 17, 2017 Admitting Diagnosis L2 superior endplate fracture, fall (1) L2 vertebral fracture ICD Code: S32.029A - Unspecified fracture of second lumbar vertebra, initial encounter for closed fracture Status: Acute Procedures none Brief History - From Admission fell 2 days ago, tues even while trying to hang [employer] lights from 2nd story onto concrete pavement reports he hit his head landed on his back or butt- with big bruise there not on blood thinners girlfriend heard him scream and came and got him up, and walked with him, and took him to take a bath with epsom salt pt does not remember anything regarding girlfriend getting him up she called the squad yesterday because his pain in lower lumbar spine, denies headaches, denies discharge from ears was able to walk at home with the girlfriend's walker no other symptoms CBC/BMP: 08/16/17 0659 08/16/17 0659 Significant Findings Laboratory Tests Test 08/15/17 14:55 08/16/17 06:59 Neutrophils (%) (Auto) 73.4 % (16.0-70.0) Estimat Glomerular Filtration Rate 84 ML/MIN (>89) Total Creatine Kinase 310 U/L (39-308) Red Blood Count 4.14 MIL/MM3 (4.50-5.90) Hemoglobin 12.8 GM/DL (13.0-17.0) Hematocrit 38.2 % (39.0-51.0) Monocytes (%) (Auto) 9.0 % (0.0-8.0) Eosinophils (%) (Auto) 4.1 % (0.0-4.0) Chloride Level 108 MEQ/L (98-107) Anion Gap 4 MEQ/L (5-15) Imaging Last Impressions Lumbar Spine MRI 08/17/17 0000 Signed Impressions: Service Date/Time: Thursday, August 17, 2017 15:06 - CONCLUSION: 1. Mild superior endplate compression fracture of L2 without retropulsion. 2. Hairline nondisplaced fracture superior endplate L1 with marrow edema. No retropulsion. 3. No canal stenosis. No discrete disc extrusions. Conus is intact. Vishal Leroy MD Chest CT 08/15/17 1447 Signed Impressions: Service Date/Time: August 16:19 - CONCLUSION: 1. Small noncalcified nodules. Short-term followup may be indicated. 2. No evidence of consolidating airspace disease, pneumothorax or acute fracture. 3. Advanced arthropathy of the left shoulder. Jair Pérez MD Abdomen/Pelvis CT 08/15/17 1447 Signed Impressions: Service Date/Time: August 16:19 - CONCLUSION: 1. Contusion over the lateral aspect of the right buttocks. No associated fracture. 2. Probable hemangiomas along the superior margin of the left hepatic lobe and posteriorly in the right hepatic lobe. 3. No acute fracture or visceral trauma. 4. Mild levoscoliosis of the thoracolumbar spine. Bibasilar dependent atelectatic changes. Luigi aPvon MD ADDENDUM: I was asked to review the above by Dr. Chaudhary. There is a fracture through the superior endplate of L2, best seen on the coronal reconstructions and sagittal scrubber operator of the same series. No retropulsed fragment. Osseous structures are otherwise intact. Luigi Pavon MD Head CT 08/15/17 0000 Signed Impressions: Service Date/Time: August 19:04 - CONCLUSION: 1. No acute intracranial abnormalities. There is a focal calcification in the right frontoparietal region which appears benign. Vishal Leroy MD PE at Discharge GENERAL: laying in bed HEAD: Atraumatic. Normocephalic. EYES: EOMI ENT: Nose without drainage. Airway patent. NECK: Trachea midline. CARDIOVASCULAR: Regular rate and rhythm without murmurs RESPIRATORY: Clear to auscultation. Breath sounds equal bilaterally. No wheezes GASTROINTESTINAL: Abdomen soft, non-tender, nondistended. No guarding. MUSCULOSKELETAL: Extremities without edema. No calf tenderness. NEUROLOGICAL: Awake and alert. Motor and sensory grossly within normal limits. Normal speech. Hospital Course Patient's pain was well managed. Neurosurgery recommends conservative mgmt for now. MRI revealed no disc herniation and no cord compression. Stable for discharge. Pt Condition on Discharge: Good Discharge Disposition: Discharge Home Discharge Time: <= 30 minutes Discharge Instructions DIET: Follow Instructions for: As Tolerated, No Restrictions Activities you can perform: See Additionl Instruction Other Activity Instructions: No bending, twisting, lifting, stomping, climbing or aerobic activities for 6 weeks Gonzalez Madrdi MD Aug 17, 2017 6:29 pm
[2017-08-17] MEDS ORDERED: IBUPROFEN 400 MG TAB PO SCH (22:00)
== END 2017-08-17 19:40 | disposition home or self-care (01) ==
LOC: NEPE 14:05 → NEDH 18:24 → N06A 19:56
PROVIDERS: ADMIT Family Medicine; ATTEND Family Medicine
DX: M48.56XA Collapsed vertebra, not elsewhere classified, lumbar region, initial encounter for fracture (principal); R51 Headache; M62.830 Muscle spasm of back; M19.012 Primary osteoarthritis, left shoulder; M41.85 Other forms of scoliosis, thoracolumbar region; G25.81 Restless legs syndrome; F17.210 Nicotine dependence, cigarettes, uncomplicated; W17.89XA Other fall from one level to another, initial encounter
CPT/HCPCS: 70450; 71260; 72148; 74177; 80048; 82550; 82552; 85025; 85610; 85730; 86850; 86900; 86901; 96361; 96374; 96375; 96376; 97110; 97116; 97162; 99285; G0378; J1885; J2270; J2405; J7030; L0627; Q9967

== ENCOUNTER 2017-12-02 16:38 | Emergency (ER) | payer SELFPAY ==
[~2017-12-02] VITALS: Ht 177.8 cm; Wt 85.0 kg
[~2017-12-02 16:38] MED LIST: HYDR-3516 PO; IBUP1TAB5 PO; METH500T3 PO; ROLLER WALKER1 MI1
[2017-12-02 16:52] VITALS: BP 135/77; PULSE 98; RESP 24; TEMP 97.4; O2SAT 96
[2017-12-02] MEDS ORDERED: SODIUM CHLOR 0.9% 1000 ML INJ 1,000 ML IV SCH (17:26)
[2017-12-02 17:30] VITALS: BP 129/72; PULSE 96; RESP 24; O2SAT 96
[2017-12-02] MEDS ORDERED: ceFAZolin 2 GM PREMIX 50 ML IV ONE (17:30)
[2017-12-02] MEDS ORDERED: TETANUS/DIPHTHERIA TOXOID ADULT 0.5 ML VIAL IM ONE (17:30)
[2017-12-02] MEDS ORDERED: THIAMINE HCL 200 MG/2 ML VIAL IM ONE (17:30)
[2017-12-02] MEDS ORDERED: SODIUM CHLORIDE 0.9% FLUSH 10 ML FLUSH IVF PRN (17:30)
[2017-12-02 18:12] LABS: AUTOMATED NEUTROPHIL # 3.9 TH/MM3 (1.8-7.7); BASOPHIL % 0.5 % (0.0-2.0); EOSINOPHIL # 0.1 TH/MM3 (0-0.4); EOSINOPHIL % 1.4 % (0.0-4.0); HEMATOCRIT 44.6 % (39.0-51.0); HEMOGLOBIN 15.1 GM/DL (13.0-17.0); LYMPH % 32.1 % (9.0-44.0); LYMPHOCYTE # 2.1 TH/MM3 (1.0-4.8); MEAN CELL VOLUME 92.3 FL (80.0-100.0); MEAN CORPUSCULAR HEMOGLOBIN 31.2 PG (27.0-34.0); MEAN CORPUSCULAR HGB CONC 33.8 % (32.0-36.0); MEAN PLATELET VOLUME 8.4 FL (7.0-11.0); MONO % 7.5 % (0.0-8.0); MONOCYTE # 0.5 TH/MM3 (0-0.9); NEUT % 58.5 % (16.0-70.0); PLATELET COUNT 272 TH/MM3 (150-450); RED BLOOD COUNT 4.83 MIL/MM3 (4.50-5.90); RED CELL DISTRIBUTION WIDTH 13.4 % (11.6-17.2); WHITE BLOOD COUNT 6.6 TH/MM3 (4.0-11.0)
--- NOTE | 2017-12-02 18:20 | RADRPT ---
EXAM DATE/TIME: 12/02/2017 17:43 [facility] COMPARISON: CT BRAIN W/O CONTRAST, August 15, 2017, 19:04. INDICATIONS : Found on sidewalk with laceration to head RADIATION DOSE: 56.35 CTDIvol (mGy) MEDICAL HISTORY : None SURGICAL HISTORY : Appendectomy. ENCOUNTER: Initial ACUITY: 1 day PAIN SCALE: 6/10 LOCATION: cranial TECHNIQUE: Multiple contiguous axial images were obtained of the head. Using automated exposure control and adj ustment of the mA and/or kV according to patient size, radiation dose was kept as low as reasonably a chievable to obtain optimal diagnostic quality images. DICOM format image data is available electro nically for review and comparison. FINDINGS: CEREBRUM: The ventricles are normal for age. No evidence of midline shift, mass lesion, hemorrhage or acute in farction. No extra-axial fluid collections are seen. A focal calcification seen in the cortex of th e right mid parietal region was present on prior CT in August 2017 is probably benign. POSTERIOR FOSSA: The cerebellum and brainstem are intact. The 4th ventricle is midline. The cerebellopontine angle i s unremarkable. EXTRACRANIAL: The visualized portion of the orbits is intact. Mild left maxillary sinus mucosal thickening. SKULL: The calvaria is intact. No evidence of skull fracture. CONCLUSION: 1. No acute findings in the brain. 2. Mild left maxillary sinus disease. Ronald Salvador MD on December 02, 2017 at 18:13 Board Certified Radiologist. This report was verified electronically.
--- NOTE | 2017-12-02 18:25 | RADRPT ---
EXAM DATE/TIME: 12/02/2017 17:43 [facility] COMPARISON: No previous studies available for comparison. INDICATIONS : Found on side walk with laceration to head. RADIATION DOSE: 17.67 CTDIvol (mGy) MEDICAL HISTORY : None SURGICAL HISTORY : Appendectomy. ENCOUNTER: Initial ACUITY: 1 day PAIN SCALE: 6/10 LOCATION: neck TECHNIQUE: Volumetric scanning of the cervical spine was performed. Multiplanar reconstructions in the sagittal, coronal and oblique axial planes were performed. Using automated exposure control and adjustment o f the mA and/or kV according to patient size, radiation dose was kept as low as reasonably achievable to obtain optimal diagnostic quality images. DICOM format image data is available electronically f or review and comparison. FINDINGS: There is normal alignment of the vertebral bodies cervical spine in sagittal projection. No is compr ession deformity. There is a mild curvature of the cervical spine convex towards the left. The post erior elements are normal alignment without evidence of locked or perched facets. The atlantoaxial a rticulation is intact. The spinous processes are intact. C2-C3: No fracture seen. The neural foramina are patent. C3-C4: No fracture seen. The neural foramina are patent. C4-C5: No fracture seen. The neural foramina are patent. C5-C6: No fracture seen. The neural foramina are patent. C6-C7: No fracture seen. The neural foramina are patent. C7-T1: No fracture seen. The neural foramina are patent. CONCLUSION: Curvature of the cervical spine convex to the left. No evidence of compression deformity or spondylo listhesis Ronald Salvador MD on December 02, 2017 at 18:21 Board Certified Radiologist. This report was verified electronically.
[2017-12-02 18:30] LABS: BICARBONATE 20.2 MEQ/L (21.0-32.0); CALCIUM 8.6 MG/DL (8.5-10.1); CREATININE 0.72 MG/DL (0.60-1.30)
[2017-12-02 18:38] LABS: BILIRUBIN, URINE NEG (NEG); BLOOD, URINE NEG (NEG); GLUCOSE,URINE NEG (NEG); KETONE, URINE NEG (NEG); NITRITE,URINE NEG (NEG); URINE COLOR LIGHT-YELLOW (YELLW/STRAW); URINE LEUKOCYTE ESTERASE NEG (NEG)
--- NOTE | 2017-12-02 18:59 | PD ---
Physical Exam Date Seen by Provider: Dec 02, 2017 Time Seen by Provider: 18:58 Narrative 42-year-old male brought in by EMS with alcohol intoxication and fall with small scalp laceration to the posterior scalp. I was asked by Dr. Chaudhary to perform laceration care to this area. Please see my procedure note. Data Data Last Documented VS Vital Signs Date Time Temp Pulse Resp B/P (MAP) Pulse Ox O2 Delivery O2 Flow Rate FiO2 12/02/17 17:52 96 Nasal Cannula 2.00 12/02/17 17:30 96 24 129/72 (91) 12/02/17 16:52 97.4 Orders Orders Basic Metabolic Panel (Bmp) (12/02/17 17:26) Complete Blood Count With Diff (12/02/17:) Prothrombin Time / Inr (Pt) (12/02/17:26) Type And Screen (12/02/17:) Ct Brain W/O Iv Contrast(Rout) (12/02/17 17:26) Ct Cerv Spine W/O Contrast (12/02/17 17:26) Iv Access Insert/Monitor (12/02/17 17:26) Ecg Monitoring (12/02/17 17:26) Oximetry (12/02/17 17:26) Oxygen Administration (12/02/17 17:26) Sodium Chlor 0.9% 1000 Ml Inj (Ns 1000 M (12/02/17 17:26) Sodium Chloride 0.9% Flush (Ns Flush) (12/02/17 17:30) Cefazolin 2 Gm Premix (Ancef 2 Gm Premix (12/02/17 17:30) Thiamine Inj (Thiamine Inj) (12/02/17 17:30) Alcohol (Ethanol) (12/02/17 17:26) Drug Screen, Random Urine (12/02/17 17:26) Urinalysis - C+S If Indicated (12/02/17 17:26) Tetanus/Diphtheria Tox Adult (Tetanus/Di (12/02/17 17:30) Cefazolin Inj (Ancef Inj) (12/02/17 19:00) Potassium Chloride (Kcl) (12/02/17 19:00) Labs Laboratory Tests Test 12/02/17 17:25 12/02/17 17:31 Urine Color LIGHT-YELLOW Urine Turbidity CLEAR Urine pH 5.0 Urine Specific [place] 1.003 Urine Protein NEG mg/dL Urine Glucose (UA) NEG mg/dL Urine Ketones NEG mg/dL Urine Occult Blood NEG Urine Nitrite NEG Urine Bilirubin NEG Urine Urobilinogen LESS THAN 2.0 MG/DL Urine Leukocyte Esterase NEG Microscopic Urinalysis Comment CULT NOT INDICATED Urine Opiates Screen NEG Urine Barbiturates Screen NEG Urine Amphetamines Screen NEG Urine Benzodiazepines Screen NEG Urine Cocaine Screen NEG Urine Cannabinoids Screen POS White Blood Count 6.6 TH/MM3 Red Blood Count 4.83 MIL/MM3 Hemoglobin 15.1 GM/DL Hematocrit 44.6 % Mean Corpuscular Volume 92.3 FL Mean Corpuscular Hemoglobin 31.2 PG Mean Corpuscular Hemoglobin Concent 33.8 % Red Cell Distribution Width 13.4 % Platelet Count 272 TH/MM3 Mean Platelet Volume 8.4 FL Neutrophils (%) (Auto) 58.5 % Lymphocytes (%) (Auto) 32.1 % Monocytes (%) (Auto) 7.5 % Eosinophils (%) (Auto) 1.4 % Basophils (%) (Auto) 0.5 % Neutrophils # (Auto) 3.9 TH/MM3 Lymphocytes # (Auto) 2.1 TH/MM3 Monocytes # (Auto) 0.5 TH/MM3 Eosinophils # (Auto) 0.1 TH/MM3 Basophils # (Auto) 0.0 TH/MM3 CBC Comment DIFF FINAL Differential Comment Prothrombin Time 10.0 SEC Prothromb Time International Ratio 1.0 RATIO Blood Urea Nitrogen 9 MG/DL Creatinine 0.72 MG/DL Random Glucose 99 MG/DL Calcium Level 8.6 MG/DL Sodium Level 143 MEQ/L Potassium Level 3.3 MEQ/L Chloride Level 109 MEQ/L Carbon Dioxide Level 20.2 MEQ/L Anion Gap 14 MEQ/L Estimat Glomerular Filtration Rate 119 ML/MIN Ethyl Alcohol Level 360 MG/DL [facility] Medical Record Reviewed: Yes Supervised Visit with BIGG: Yes Procedures Procedure Narrative LACERATION LOCATION: Right upper posterior scalp LENGTH: 0.57 NUMBER OF STITCHES/ROGER: 3 stable REPAIR: The area of the laceration was prepped with Betadine and sterilely draped. The wound was copiously irrigated and explored without evidence of foreign body, tendon injury or neurovascular injury. The wound was closed using roger. This was a single layer repair. The patient was advised to keep the wound area clean and dry. Patient tolerated the procedure well. Scripts No Active Prescriptions or Reported Meds Condition: Grzegorz Germain Dec 02, 2017 18:59
--- NOTE | 2017-12-02 18:59 | PD ---
HPI Chief Complaint: Alcohol/Drug Intoxication Time Seen by Provider: 17:07 Travel History International Travel<30 days: No Contact w/Intl Traveler<30days: No Traveled to known affect area: No History of Present Illness HPI 42-year-old male was brought to the emergency room by EMS after he was found intoxicated on a sidewalk and possibly stumble and fall. The bystanders called EMS. Patient is quite intoxicated and not making much sense when he is talking. Speech is very slurred. Vital signs are otherwise relatively stable. Patient initially was brought and collared but by the time I went to see him he had taken the collar off himself. He is not much of a historian at this point. He is maintaining his airway however. [facility] Past Medical History Narrative Medical List of his past medical, surgical, social and family history reviewed from the nursing note. Arthritis: Yes Autoimmune Disease: No Cancer: No Cardiovascular Problems: No Diabetes: No Diminished Hearing: No Endocrine: No Genitourinary: No Immune Disorder: No Medical other: Yes (ETOH ABUSE ) Musculoskeletal: Yes Neurologic: No Psychiatric: No Reproductive: No Respiratory: No Immunizations Current: No Thyroid Disease: No Tetanus Vaccination: Unknown Influenza Vaccination: No Past Surgical History Tonsillectomy: Yes (ADDENOIDECTOMY) Social History Alcohol Use: Yes (ETOH ABUSE) Tobacco Use: Yes (1 PPD) Substance Use: No Allergies-Medications (Allergen,Severity, Reaction): Coded Allergies: No Known Allergies (Verified Allergy, Unknown, 12/02/17) Comments No known drug allergies. Reported Meds & Prescriptions Reported Meds & Active Scripts Active Keflex (Cephalexin) 250 Mg Cap 250 Mg PO Q6H 7 Days Narrative Medication List of his home medications reviewed from the nursing note. Review of Systems ROS Limitations: Intoxication Except as stated in HPI: all other systems reviewed are Neg Physical Exam Narrative GENERAL: Intoxicated, disheveled SKIN: Focused skin assessment warm/dry. HEAD: Right parieto-occipital area has a 3 cm jagged laceration. It is not actively bleeding EYES: Pupils equal and round. No scleral icterus. No injection or drainage. ENT: No nasal bleeding or discharge. Mucous membranes pink and moist. NECK: Trachea midline. No JVD. CARDIOVASCULAR: Regular rate and rhythm. No murmur appreciated. RESPIRATORY: No accessory muscle use. Clear to auscultation. Breath sounds equal bilaterally. GASTROINTESTINAL: Abdomen soft, non-tender, nondistended. Hepatic and splenic margins not palpable. MUSCULOSKELETAL: No obvious deformities. No clubbing. No cyanosis. No edema. NEUROLOGICAL: GCS of 14, intoxicated t. No obvious cranial nerve deficits. Motor grossly within normal limits. Slurred speech. PSYCHIATRIC: Appropriate mood and affect; insight and judgment normal. Data Data Last Documented VS Vital Signs Date Time Temp Pulse Resp B/P (MAP) Pulse Ox O2 Delivery O2 Flow Rate FiO2 12/02/17 21:35 12/02/17 19:16 95 16 96 Room Air 12/02/17 17:52 2.00 12/02/17 16:52 97.4 Orders Orders Basic Metabolic Panel (Bmp) (12/02/17 17:26) Complete Blood Count With Diff (12/02/17 17:26) Prothrombin Time / Inr (Pt) (12/02/17 17:26) Type And Screen (12/02/17 17:) Ct Brain W/O Iv Contrast(Rout) (12/02/17 17:26) Ct Cerv Spine W/O Contrast (12/02/17 17:26) Iv Access Insert/Monitor (12/02/17 17:26) Ecg Monitoring (12/02/17:) Oximetry (12/02/17:26) Oxygen Administration (12/02/17 17:26) Sodium Chlor 0.9% 1000 Ml Inj (Ns 1000 M (12/02/17 17:26) Sodium Chloride 0.9% Flush (Ns Flush) (12/02/17 17:30) Cefazolin 2 Gm Premix (Ancef 2 Gm Premix (12/02/17 17:30) Thiamine Inj (Thiamine Inj) (12/02/17 17:30) Alcohol (Ethanol) (12/02/17 17:26) Drug Screen, Random Urine (12/02/17:26) Urinalysis - C+S If Indicated (12/02/17 17:26) Tetanus/Diphtheria Tox Adult (Tetanus/Di (12/02/17 17:30) Cefazolin Inj (Ancef Inj) (12/02/17 19:00) Potassium Chloride (Kcl) (12/02/17 19:00) Labs Laboratory Tests Test 12/02/17 17:25 12/02/17 17:31 Urine Color LIGHT-YELLOW Urine Turbidity CLEAR Urine pH 5.0 Urine Specific [place] 1.003 Urine Protein NEG mg/dL Urine Glucose (UA) NEG mg/dL Urine Ketones NEG mg/dL Urine Occult Blood NEG Urine Nitrite NEG Urine Bilirubin NEG Urine Urobilinogen LESS THAN 2.0 MG/DL Urine Leukocyte Esterase NEG Microscopic Urinalysis Comment CULT NOT INDICATED Urine Opiates Screen NEG Urine Barbiturates Screen NEG Urine Amphetamines Screen NEG Urine Benzodiazepines Screen NEG Urine Cocaine Screen NEG Urine Cannabinoids Screen POS White Blood Count 6.6 TH/MM3 Red Blood Count 4.83 MIL/MM3 Hemoglobin 15.1 GM/DL Hematocrit 44.6 % Mean Corpuscular Volume 92.3 FL Mean Corpuscular Hemoglobin 31.2 PG Mean Corpuscular Hemoglobin Concent 33.8 % Red Cell Distribution Width 13.4 % Platelet Count 272 TH/MM3 Mean Platelet Volume 8.4 FL Neutrophils (%) (Auto) 58.5 % Lymphocytes (%) (Auto) 32.1 % Monocytes (%) (Auto) 7.5 % Eosinophils (%) (Auto) 1.4 % Basophils (%) (Auto) 0.5 % Neutrophils # (Auto) 3.9 TH/MM3 Lymphocytes # (Auto) 2.1 TH/MM3 Monocytes # (Auto) 0.5 TH/MM3 Eosinophils # (Auto) 0.1 TH/MM3 Basophils # (Auto) 0.0 TH/MM3 CBC Comment DIFF FINAL Differential Comment Prothrombin Time 10.0 SEC Prothromb Time International Ratio 1.0 RATIO Blood Urea Nitrogen 9 MG/DL Creatinine 0.72 MG/DL Random Glucose 99 MG/DL Calcium Level 8.6 MG/DL Sodium Level 143 MEQ/L Potassium Level 3.3 MEQ/L Chloride Level 109 MEQ/L Carbon Dioxide Level 20.2 MEQ/L Anion Gap 14 MEQ/L Estimat Glomerular Filtration Rate 119 ML/MIN Ethyl Alcohol Level 360 MG/DL [facility] Medical Decision Making Medical Screen Exam Complete: Yes Emergency Medical Condition: Yes Medical Record Reviewed: Yes Differential Diagnosis Intracranial bleed, acute alcohol intoxication, metabolic acidosis, drug abuse Narrative Course 6:[address] scan of the head and cervical spine is negative for any acute injury. Blood test results are within acceptable limit except for potassium is slightly low and alcohol level is 360. Patient was given tetanus upon arrival since his tetanus status was unknown. I have ordered for IV Ancef. My PA is closing the laceration with roger. Please refer to his procedure note. Patient was given potassium replacement. Patient will be in the emergency room sleeping it off until he is sober. Procedures EKG Prior to Arrival: No Diagnosis Primary Impression: Acute alcohol intoxication Qualified Codes: F10.929 - Alcohol use, unspecified with intoxication, unspecified Additional Impressions: Fall Qualified Codes: W19.XXXA - Unspecified fall, initial encounter Head injury Qualified Codes: S09.90XA - Unspecified injury of head, initial encounter Scalp laceration Qualified Codes: S01.01XA - Laceration without foreign body of scalp, initial encounter Additional Instructions: Drink alcohol in moderation. Return to the emergency room in 1 week to get the roger taken out. Take the medication as per the prescription direction. Keep the wound clean and dry. Med/Other Pt SpecificInfo: Prescription(s) given Scripts Cephalexin (Keflex) 250 Mg Cap 250 MG PO Q6H for Infection for 7 Days, #28 CAP 0 Refills Prov: Canelo Chaudhary MD 12/02/17 Disposition: 01 DISCHARGE HOME Condition: Stable Canelo Chaudhary MD Dec 02, 2017 18:58
[2017-12-02] MEDS ORDERED: CEPH-459 PO (19:00)
[2017-12-02] MEDS ORDERED: POTASSIUM CHLORIDE 20 MEQ CONTROLLED RELEASE TAB PO ONE (19:00)
[2017-12-02 19:16] VITALS: BP 138/85; PULSE 95; RESP 16; O2SAT 96
== END 2017-12-02 21:40 | disposition home or self-care (01) ==
LOC: NEPD 16:38
DX: F10.129 Alcohol abuse with intoxication, unspecified (principal); S01.01XA Laceration without foreign body of scalp, initial encounter; E87.6 Hypokalemia; M19.90 Unspecified osteoarthritis, unspecified site; F17.210 Nicotine dependence, cigarettes, uncomplicated; W19.XXXA Unspecified fall, initial encounter; Y90.8 Blood alcohol level of 240 mg/100 ml or more; Z23 Encounter for immunization
CPT/HCPCS: 12001; 70450; 72125; 80048; 80307; 81001; 85025; 85610; 86850; 86900; 86901; 90471; 90714; 96361; 96372; 96374; 99284; J0690; J3411; J7030

== ENCOUNTER 2017-12-18 11:12 | Emergency (ER) | payer SELFPAY ==
[~2017-12-18] VITALS: Ht 175.3 cm; Wt 70.5 kg
[~2017-12-18 11:12] MED LIST changes: +CEPH-459 PO; -HYDR-3516 PO; -IBUP1TAB5 PO; -METH500T3 PO; -ROLLER WALKER1 MI1
[2017-12-18 11:39] VITALS: BP 139/88; PULSE 89; RESP 18; TEMP 97.8; O2SAT 98
--- NOTE | 2017-12-18 11:47 | PD ---
HPI Chief Complaint: Wound/Suture/Staple Re-Check Time Seen by Provider: 11:42 Travel History International Travel<30 days: No Contact w/Intl Traveler<30days: No Traveled to known affect area: No History of Present Illness HPI 42-year-old male presents emergency department for staple removal from scalp laceration sustained while he was under the influence of alcohol 1 week ago. He has no acute complaints at this time. He has no known drug allergies. PFSH Past Medical History Arthritis: Yes Autoimmune Disease: No Cancer: No Cardiovascular Problems: No Diabetes: No Diminished Hearing: No Endocrine: No Genitourinary: No Immune Disorder: No Musculoskeletal: Yes Neurologic: No Psychiatric: No Reproductive: No Respiratory: No Immunizations Current: No Thyroid Disease: No Past Surgical History Tonsillectomy: Yes (ADDENOIDECTOMY) Social History Alcohol Use: Yes (ETOH ABUSE) Tobacco Use: Yes (1 PPD) Substance Use: No Allergies-Medications (Allergen,Severity, Reaction): Coded Allergies: No Known Allergies (Verified Allergy, Unknown, 12/02/17) Reported Meds & Prescriptions Reported Meds & Active Scripts Active Keflex (Cephalexin) 250 Mg Cap 250 Mg PO Q6H 7 Days Review of Systems Except as stated in HPI: all other systems reviewed are Neg General / Constitutional: No: Fever Eyes: No: Visual changes HENT: No: Headaches Cardiovascular: No: Chest Pain or Discomfort Respiratory: No: Shortness of Breath Gastrointestinal: No: Abdominal Pain Genitourinary: No: Dysuria Musculoskeletal: No: Pain Skin: No Rash Neurologic: No: Weakness Psychiatric: No: Depression Endocrine: No: Polydipsia Hematologic/Lymphatic: No: Easy Bruising Physical Exam Narrative GENERAL: Patient appears in no acute distress and is in good spirits SKIN: Warm and dry. Normal color. Normal turgor. Patient has a well-healed small laceration to the right upper posterior scalp with [address] HEAD: Atraumatic. Normocephalic. Nontender EYES: Pupils equal and round. No scleral icterus. No injection or drainage. ENT: No nasal bleeding or discharge. Mucous membranes pink and moist. Pharynx is clear. Airways patent NECK: Trachea midline. Supple and nontender. CARDIOVASCULAR: Regular rate and rhythm. RESPIRATORY: No accessory muscle use. MUSCULOSKELETAL: Extremities without clubbing, cyanosis, or edema. No obvious deformities. NEUROLOGICAL: Awake and alert. No obvious cranial nerve deficits. Motor grossly within normal limits. Five out of 5 muscle strength in the arms and legs. Normal speech. PSYCHIATRIC: Appropriate mood and affect; insight and judgment normal. Data Data Last Documented VS Vital Signs Date Time Temp Pulse Resp B/P (MAP) Pulse Ox O2 Delivery O2 Flow Rate FiO2 12/18/17 11:39 97.8 89 18 139/88 (105) 98 MDM Medical Decision Making Medical Screen Exam Complete: Yes Emergency Medical Condition: Yes Differential Diagnosis Recent intoxication. Fall. Scalp laceration. Staple removal Narrative Course Roger are removed without difficulty. No further medical treatment warranted Diagnosis Primary Impression: Encounter for removal of roger Patient Instructions: General Instructions Med/Other Pt SpecificInfo: Wound Care Disposition: 01 DISCHARGE HOME Condition: Stable Grzegorz Harrison Dec 18, 2017 11:47
== END 2017-12-18 12:15 | disposition home or self-care (01) ==
LOC: NEPK 11:12
DX: S01.01XD Laceration without foreign body of scalp, subsequent encounter (principal); X58.XXXD Exposure to other specified factors, subsequent encounter; Z48.02 Encounter for removal of sutures
CPT/HCPCS: 99281